=== PATIENT | female | born 1980 | race Caucasian/White ===

== ENCOUNTER 2018-05-23 02:29 | Emergency (ER) | payer OTHER ==
[2018-05-23 02:35] VITALS: Ht 170.2 cm
[2018-05-23 03:11] VITALS: BP 115/88
== END 2018-05-23 03:11 | disposition home or self-care (01) ==
LOC: ED 02:29
DX: L03.114 Cellulitis of left upper limb (principal); E03.9 Hypothyroidism, unspecified